=== PATIENT | female | born 1975 | race Caucasian/White ===

== ENCOUNTER → 2019-01-13 | Outpatient (CLI) | payer OTHER ==
--- NOTE | 2019-01-16 11:13 | MM ---
Reason for exam: screening (asymptomatic). Last mammogram was performed 3 years and 1 month ago. Physical Findings: A clinical breast exam by your physician is recommended on an annual basis and results should be correlated with mammographic findings. MG 3D Screening Mammo W/Cad Bilateral CC and MLO view(s) were taken. Prior study comparison: December 24, 2015, bilateral MG screening mammo w CAD. August 23, 2014, bilateral MG screening mammo w CAD. There are scattered fibroglandular densities. There is no discrete abnormality. No significant changes when compared with prior studies. ASSESSMENT: Negative, BI-RAD 1 RECOMMENDATION: Routine screening mammogram of both breasts in 1 year.
== END | disposition home or self-care (01) ==
LOC: RADMAMWWP 11:14
PROVIDERS: ATTEND Obstetrics & Gynecology
DX: Z12.31 Encounter for screening mammogram for malignant neoplasm of breast (principal)
CPT/HCPCS: 77063; 77067

== ENCOUNTER → 2021-10-23 | Outpatient (CLI) | payer OTHER ==
[2021-10-23 16:19] LABS: HCT 40.5 % (34.0-46.0); MCH 30.4 pg (25.0-35.0); MCHC 32.1 g/dL (31.0-37.0); MCV 94.5 fL (80.0-100.0); Mean Platelet Volume 7.6; Platelet Count 258 k/uL (150-450); RBC 4.28 m/uL (3.80-5.40); RDW 13.2 % (11.5-15.5); WBC 5.4 k/uL (3.8-10.6)
== END | disposition home or self-care (01) ==
LOC: LABPAT 15:58
PROVIDERS: ATTEND Orthopaedic Surgery
DX: Z01.812 Encounter for preprocedural laboratory examination (principal); M16.12 Unilateral primary osteoarthritis, left hip
CPT/HCPCS: 85027

== ENCOUNTER 2021-10-24 06:01 | Day surgery (SDC) | payer OTHER ==
[2021-10-22 14:47] VITALS: BMI 33.6
[~2021-10-24 06:01] MED LIST: ACETAMINOPHEN TAB 500 MG TAB PO PRN; DEXAMETHASONE SOD PHOSPHATE 10 MG/ML 1 ML VIAL IV PRN; DOCUSATE 100 MG CAP PO PRN; FAMOTIDINE 20 MG/2 ML VIAL IVP PRN; KETOROLAC 15 MG/ML 1 ML VIAL IVP PRN; LACTATED RINGERS 1,000 ML IV SCH; MIDAZOLAM 2 MG/2 ML VIAL IV PRN; ONDANSETRON 4 MG/2 ML VIAL IVP PRN; TRANEXAMIC ACID IN NACL,ISO-OS 1,000 MG in SALINE 1 100ML.BAG IVPB PRN; oxyCODONE ER 10 MG TAB.ER.12H PO PRN
[2021-10-24] MEDS ORDERED: LIDOCAINE 1% (10MG/ML) FOR IV START INTRADERMA ONE (06:45)
[2021-10-24] MEDS ORDERED: HYDROmorphone 0.5 MG/0.5 ML SYRINGE IVP PRN (07:00)
[2021-10-24] MEDS ORDERED: ROPIVACAINE 5 MG/ML 30 ML VIAL ONE (07:33)
[2021-10-24] MEDS ORDERED: MIDAZOLAM 2 MG/2 ML VIAL ONE (07:33)
[2021-10-24] MEDS ORDERED: ePHEDrine 50 MG/ML 1 ML VIAL ONE (07:33)
[2021-10-24] MEDS ORDERED: LIDOCAINE 2% INJ 20 MG/ML (2 ML VIAL) ONE (07:33)
[2021-10-24] MEDS ORDERED: PHENYLEPHRINE-0.9% NACL SYG 1,000 MCG/10 ML SYRINGE ONE (07:33)
[2021-10-24] MEDS ORDERED: DEXAMETHASONE SOD PHOSPHATE 4 MG/ML 1 ML VIAL ONE (07:33)
[2021-10-24] MEDS ORDERED: GLYCOPYRROLATE 0.2 MG/ML 2 ML VIAL ONE (07:33)
[2021-10-24] MEDS ORDERED: NEOSTIGMINE 1 MG/ML 10 ML VIAL ONE (07:33)
[2021-10-24] MEDS ORDERED: PROPOFOL 10 MG/ML 20 ML VIAL IV ONE (07:33)
[2021-10-24] MEDS ORDERED: KETAMINE 10 MG/ML 20 ML VIAL ONE (07:33)
[2021-10-24] MEDS ORDERED: TRANEXAMIC ACID IN NACL,ISO-OS 1,000 MG/100 ML BAG ONE (07:33)
[2021-10-24] MEDS ORDERED: fentaNYL (PF) 50 MCG/ML 2 ML AMP ONE (07:33)
[2021-10-24] MEDS ORDERED: ROCURONIUM 10 MG/ML (5 ML VIAL) IV ONE (07:33)
[2021-10-24] MEDS ORDERED: TRANEXAMIC ACID 1,000 MG in SODIUM CHLORIDE 0.9% 100 ML IVPB ONE (07:39)
--- NOTE | 2021-10-24 07:39 | P.ANPRN ---
Procedure Note - Anesthesia - Nerve Block Performed Left Erector Spinae Single Time Out Performed: Yes Date of Procedure: 10/24/21 Procedure Start Time: Procedure Stop Time: Location of Patient: PreOp Indication: Acute Post-Operative Pain, Requested by Surgeon Sedation Type: Sedate with meaningful contact maintained Preparation: Sterile Prep, Sterile Dressing Position: Prone Catheter: None Needle Types: Facet Needle Gauge: 20 Ultrasound used to visualize needle placement: Yes Ultrasound used to observe medication spread: Yes Injectate: 0.5% Ropivacaine (see comment for volume) (30 ml + decadron 4 mg) Blood Aspirated: No Pain Paresthesia on Injection Noted: No Resistance on Injection: Normal Image Stored and Saved: Yes Events: Uneventful and Well Tolerated
[2021-10-24] MEDS: ROPIVACAINE/EPI/CLONIDINE/KET 50 ML SYRINGE MISCELLANE PRN ×2 (07:59→08:41)
[2021-10-24] MEDS ORDERED: LACTATED RINGERS 1,000 ML IV ONE ×2 (08:57→12:15)
--- NOTE | 2021-10-24 10:07 | XR ---
Fluoroscopy INDICATION: Pain FINDINGS: Fluoroscopy time: 1 minute and 13 seconds. Images obtained: 7. IMPRESSIONS: 1. Documentation of fluoroscopy.
--- NOTE | 2021-10-24 10:10 | P.OP ---
Date of Procedure: 10/24/21 Preoperative Diagnosis: Severe left hip osteoarthritis Postoperative Diagnosis: Same Procedure(s) Performed: Left direct anterior total hip arthroplasty Implants: 1. John Trident II Acetabular Cup, Size #50 2. John Insignia Size #4 Femoral Stem, High Offset 3. Biolox delta femoral head, 36, -2.5 neck Anesthesia: CYRUSA Surgeon: Cristo Sheth Pellet Machine Operator #1: Angelica Curran Estimated Blood Loss (ml): 200 IV fluids (ml): 1,100 Pathology: none sent Condition: stable Disposition: PACU Indications for Procedure: I had a long discussion with the patient in the office on the potential risks and complications of an elective total hip replacement through a direct anterior approach. Risks discussed include, but are certainly not limited to, risks from anesthesia, superficial infection requiring local wound care or antibiotics, deep kostas-prosthetic joint infection and the treatment required to eradicate infection, intraoperative fracture, postoperative periprosthetic fracture, damage to local blood vessels or nerves particularly the lateral femoral cutaneous nerve, delayed wound healing requiring local wound care or possibly surgical debridement, hip dislocation, leg length discrepancy, soft tissue irritation around the total hip implant such as iliopsoas tendinitis or trochanteric bursitis, wear and osteolysis from the implants, squeaking or audible noises, groin pain, thigh pain, heterotopic ossification, stiffness, aseptic loosening of the implants, dissatisfaction with surgical outcome, need for revision surgery, DVT, PE, swelling of the operative extremity, acute coronary event, stroke, failure to thrive, and possibly loss of life or limb. The patient understands that while these are the most common complications after an elective hip replacement there are certainly other less common complications possible. They were given ample time to ask questions regarding the potential complications of a hip replacement. Following our discussion the patient provided their verbal and written consent to go forward with an elective total hip replacement. Operative Findings: Severe left hip osteoarthritis with complete loss of articular cartilage from the femoral head and acetabulum Description of Procedure: The patient was identified in the preoperative holding area and the correct hip was marked with my initials. I reviewed the procedure and consent with the patient. All of their questions were answered. The patient was then brought back into the operating room by anesthesia. While on the rvesta anesthesia was administered by the anesthesia team. Preoperative antibiotics and tranexamic acid were also given. After the patient was under anesthesia I examined their ankles to determine their preoperative leg length discrepancy. The skin over the anterior aspect of the hip was shaved to remove hair over the site of planned incision. Both feet and ankles were padded with webril and boots for the Rossiter were applied. The patient was then carefully transferred onto the Rossiter table. A perineal post was immediately placed. The arms were placed on arm holders and were well-padded. Both boots were secured to the spars on the Rossiter table. The patient was positioned so that the pelvis was centered over the post. Nonsterile drapes were applied. A timeout was performed identifying the correct patient, operative extremity, and procedure. At this point fluoroscopy was brought in to take preoperative images of the pelvis and operative hip. Using the standing AP pelvis from the office as a template, a comparable image was obtained with fluoroscopy. A metallic bar was used to create a bi-ischial line for use as a reference to leg length adjustments during the procedure. Global offset was also measured on both the operative and nonoperative leg. Fluoroscopy was then brought out and a pre-scrub using a chlorhexidine scrub brush was performed. The operative limb was then prepped and draped in the standard sterile fashion. An anterior longitudinal incision was made lateral and distal to the ASIS. The skin and subcutaneous tissues were incised sharply. The underlying tensor fascia was identified and incised in its midportion. The fascia was dissected free from the underlying muscle and the muscle belly was retracted. A blunt tipped cobra retractor was placed over the superior neck under the muscle fibers of the gluteus minimus. The deep enveloping fascia of the tensor was incised. The anterior leash of vessels were then identified and cauterized. The fascia between the rectus and the capsule was then incised and the pre-capsular fat was excised. A second Cobra was placed inferior to the neck. The interval between the rectus and iliocapsularis and the hip capsule was developed and a retractor was placed carefully over the anterior rim of the acetabulum. A T-shaped anterior capsulotomy was performed. The superior capsular leaflet was left in place in the inferior capsular flap was excised. The Cobra retractors were placed intracapsularly. We then made a femoral neck osteotomy according to preoperative and intraoperative templating and confirmed the level of the osteotomy using fluoroscopic imaging. The femoral head was removed, passed off to the back table, and sized. The superior capsular flap was excised. Retractors were placed circumferentially exposing the acetabulum. We then circumferentially debrided the acetabulum free of labrum and osteophytes. The pulvinar was removed to fully visualize the cotyloid fossa. We then sequentially reamed to achieve peripheral fit and excellent bleeding subchondral bone. The socket was thoroughly irrigated. The acetabular component was impacted into the appropriate position using fluoroscopy to guide version, inclination, and depth of insertion taking care to have a comparable image of the AP pelvis to the standing image taken in the office. An excellent press-fit was achieved and final position was confirmed using fluoroscopy. The press fit was augmented with bony cancellus dome screws. The liner was then impacted into the socket. Attention was then turned to the femur. The remnant dorsal lateral capsule was excised. The short external rotators were visible and protected. A bone hook was used to confirm appropriate translation of the trochanter away from the acetabulum. The leg was then extended and adducted and the bone hook was used to elevate the femur for broaching. A box osteotome and blunt tipped canal sound was then utilized to gain access to the femoral canal. We then sequentially broached the femur in appropriate anteversion until excellent torsional stability was achieved. The neck cut was brought flush to the trial broach with a calcar planar. A trial neck and head were then placed onto the broach and the hip was atraumatically reduced under direct visualization. External rotation to 90 was performed to assess stability. Fluoroscopy was brought in. An AP and lateral fluoroscopic image of the proximal femur was obtained to assess position and fill of the trial broach. An AP of the pelvis was then obtained and matched to the preoperative image taken. A bi-ischial bar was then placed and measurements were taken to assess changes in length and offset. The hip was then carefully dislocated, the proximal femur was exposed, and the trial implants were removed. The wound and proximal femur was thoroughly irrigated using sterile saline and pulsatile lavage. The final femoral implant was dispensed and gently tapped into place generating an excel lent press-fit. The trunnion was cleansed and the final head was tapped into place to engage the Curiel taper. The acetabulum was irrigated and visualized to be free of debris. The hip was carefully reduced. Stability was checked clinically with external rotation to 90 and there was no evidence of instability. Final fluoroscopic images were taken. The wound was then thoroughly irrigated and soaked with a dilute Betadine rinse for 3 minutes. 3 L of sterile saline was irrigated through the wound using pulsatile lavage. Local anesthetic cocktail was injected into the soft tissues around the surgical field. The wound was then closed in layers. A sterile dressing was placed over the surgical incision . The drapes were taken down and the patient was carefully transferred off of the Rossiter table. Following removal of the boots the leg lengths felt acceptable. The patient was then taken to recovery room having tolerated the procedure well. Angelica Curran PA-C was required as a skilled client account assistant for patient positioning, surgical exposure, retraction, placement of implants, and closure of the surgical wound. PLAN: The patient can weight-bear as tolerated on the operative extremity. DVT prophylaxis with aspirin 81 mg twice a day based on preoperative risk stratification. Physical therapy for gait training. The patient would like to discharge home later this afternoon. This is okay as long as her pain is controlled and she passes physical therapy.
[2021-10-24 10:16] VITALS: TEMP 96.9
[2021-10-24] MEDS ORDERED: ONDANSETRON 4 MG/2 ML VIAL IVP ONE (10:54)
[2021-10-24] MEDS ORDERED: HYDROcodone/APAP 5-325MG 1 EACH TAB ONE (12:04)
[2021-10-24] MEDS ORDERED: HYDROcodone/APAP 5-325MG 1 EACH TAB PO ONE (12:05)
[2021-10-24 13:09] VITALS: BP 82/56; PULSE 92; RESP 15
--- NOTE | 2021-10-24 14:03 | FL ---
EXAMINATION TYPE: FL guidance operating room DATE OF EXAM: 10/24/2021 CLINICAL HISTORY: Left hip pain and osteoarthritis. TECHNIQUE: Fluoroscopy. COMPARISON: None. FINDINGS: Fluoroscopic guidance was provided during left hip replacement procedure performed by Dr. Sheth. A total of 73 seconds of fluoroscopic time was utilized during the procedure and 0 spot im ages was acquired. IMPRESSION: As Above.
== END 2021-10-24 14:07 | disposition home or self-care (01) ==
LOC: OR 06:01
PROVIDERS: ATTEND Orthopaedic Surgery
DX: M17.12 Unilateral primary osteoarthritis, left knee (principal); G89.18 Other acute postprocedural pain; Z79.82 Long term (current) use of aspirin; Z79.1 Long term (current) use of non-steroidal anti-inflammatories (NSAID); Z79.899 Other long term (current) drug therapy
CPT/HCPCS: 97110; 97161; 81025; 64999; 86900; 86901; 86850; 73501; 27130; 76942; C1776; J2250; J1100 ×2; J2710; J0690; J2405; J3010; J2795; J1885; J2370; J2704; J2001